=== PATIENT | male | born 1995 | race Hispanic/Latino ===

== ENCOUNTER 2019-09-11 17:07 | Emergency (ER) | payer SELFPAY ==
[~2019-09-11] VITALS: Ht 170.2 cm; Wt 74.8 kg
--- NOTE | 2019-09-11 17:21 | Emergency Department Note ---
History of Present Illnes History of Present Illness Chief Complaint: General Medicine Complaints History of Present Illness This is a 24 year old male Patient states that a few hours ago he was [place] a skate park and fell off of his skate board while trying to land a "trick." Patient denies any LOC however, patient is complaining of nausea. Historian: Patient Arrival Mode: Car Additional Treatment RN TEAM LEADER: none Electric Furnace Operator Required: No Onset (how long ago): hour(s) Location: posterior scalp Quality: hematoma/pain Radiation: Reports non-radiation Severity: mild Onset quality: sudden Timing of current episode: constant Progression: improving Chronicity: new Context: Denies recent illness Relieving factors: none Exacerbating factors: none Associated symptoms: Reports denies other symptoms Treatments prior to arrival: none Past Medical/Family History Physician Review I have reviewed the patient's past medical and family history. Any updates have been documented here. Past Medical History Recent Fever: No Clinical Suspicion of Infectio: No New/Unexplained Change in Ment: No Past Medical History: None Past Surgical History: Appendectomy Social History Smoking Cessation: Current every day smoker Counseling Performed: No Alcohol Use: Social Any Illegal Drug Use: No TB Exposure/Symptoms: No Physically hurt or threatened: No Family History Family history of heart diseas: No Other Any Pre-Existing Lines (PICC,: No Review of Systems Review of Systems Constitutional: Reports no symptoms EENTM: Reports as per HPI Cardiovascular: Reports no symptoms Respiratory: Reports no symptoms Gastrointestinal: Reports no symptoms Genitourinary: Reports no symptoms Musculoskeletal: Reports no symptoms Integumentary: Reports as per HPI Neurological: Reports no symptoms Psychological: Reports no symptoms Endocrine: Reports no symptoms Hematological/Lymphatic: Reports no symptoms Physical Exam Related Data Allergies: Coded Allergies: No Known Allergies (Unverified , 09/11/19) Triage Vital Signs Vital Signs Date Time Temp Pulse Resp B/P (MAP) Pulse Ox O2 Delivery O2 Flow Rate FiO2 09/11/19 17:13 97.4 60 16 117/73 100 Room Air Vital signs reviewed: Yes Physical Exam CONSTITUTIONAL Constitutional: Present well-developed, Present well-nourished HENT HENT: Present oropharynx clear/moist, Present oropharynx normal, Present nose normal, Present dentition normal, Present other (3 cm superficial laceration posterior scalp with hematoma); Absent nasal discharge, Absent rhinorrhea HENT L/R: Present left TM normal, Present right TM normal, Present left ext ear normal, Present right ext ear normal EYES Eyes: Reports PERRL, Reports conjunctivae normal, Reports EOM normal NECK Neck: Present ROM normal, Present supple, Present other (no spine tenderness, good ROM without pain) PULMONARY Pulmonary: Present effort normal, Present breath sounds normal CARDIOVASCULAR Cardiovascular: Present regular rhythm, Present heart sounds normal, Present capillary refill normal, Present normal rate GASTROINTESTINAL Abdominal: Present soft, Present nontender, Present bowel sounds normal GENITOURINARY Genitourinary: Present exam deferred SKIN Skin: Present warm, Present dry MUSCULOSKELETAL Musculoskeletal: Present ROM normal NEUROLOGICAL Neurological: Present alert, Present oriented x 3, Present no gross motor or sensory deficits; Absent cranial nerve deficit, Absent sensory deficit, Absent abnormal gait, Absent weakness PSYCHOLOGICAL Psychological: Present mood/affect normal, Present judgement normal Procedures Laceration Laceration: Laceration 1 Site: scalp (posterior) Size (cm): 3 Description: linear Depth: simple, single layer Amount of anesthesia (mL): 0 Skin layer closed with: other (flash x 4) Number of sutures: 4 Technique: simple, interrupted Assessment & Plan Medical Decision Making MDM check CT brain r/o intracerebral hemorrhage, skull fx Reassessment Reassessment laceration stapled, await CT head results (Dr Weinberg to F/U results) - if normal, DC home, Tylenol/Motrin, Head sheet precautions, F/U PCP 8 days for staple removal Assessment & Plan Final Impression: (1) Fall (2) Scalp laceration (3) Scalp contusion (4) Hematoma of scalp Depart Disposition: HOME, SELF-CARE Last Vital Signs Date Time Temp Pulse Resp B/P (MAP) Pulse Ox O2 Delivery O2 Flow Rate FiO2 09/11/19 17:13 97.4 60 16 117/73 100 Room Air Medications in the ED Tetanus/ Diphtheria Toxoids 0.5 ml ONCE ONCE IM ; Start 09/11/19 at 17:30; Stop 09/11/19 at 17:31 TARUN MEDINA MD Sep 11, 2019 17:21
[2019-09-11] MEDS ORDERED: TETANUS/DIPHTHERIA TOX ADULT 0.5 ML SYR IM ONE (17:30)
--- NOTE | 2019-09-11 18:05 | NUR ---
[facility] in [facility] - 09/11/19 at 1806 by [facility] Dr. Weinberg at bedside
--- NOTE | 2019-09-11 18:30 | Diagnostic Imaging Report ---
CT BRAIN WO HISTORY: Trauma COMPARISON: None. TECHNIQUE: Noncontrast axial scans were obtained from skull base to the vertex. Coronal and sagittal reconstructions obtained from the axial data. One or more of the following dose reduction techniques were used: Automated exposure control, adjustment of the mA and/or kV according to patient size, and/or utilization of iterative reconstruction technique. DISCUSSION: Scalp/Skull: Posterior parietal-occipital scalp hematoma/laceration. No calvarial fracture. Brain sulci: Appropriate for patient's age. Ventricles: Normal in size and configuration. No hydrocephalus. Extra-axial spaces: No masses or fluid collections. Parenchyma: No abnormal densities. No mass, hemorrhage, or large vascular territory acute infarct. Dural sinuses: No abnormal densities. Sellar/Suprasellar region: Intact. Skull base: Intact. Incidental findings: None. IMPRESSION: No intracranial abnormalities. Signed by: Dr. Silver Cramer M.D. on 09/11/2019 6:27 PM
[2019-09-11 18:58] VITALS: BP 128/80
== END 2019-09-11 19:05 | disposition home or self-care (01) ==
LOC: ER 17:15
DX: S01.01XA Laceration without foreign body of scalp, initial encounter (principal); V00.131A Fall from skateboard, initial encounter; Y93.51 Activity, roller skating (inline) and skateboarding; Y92.830 Public park as the place of occurrence of the external cause; F17.210 Nicotine dependence, cigarettes, uncomplicated
CPT/HCPCS: 70450; 90471; 90714; 99283